=== PATIENT | female | born 1965 | race Caucasian/White ===

== ENCOUNTER 2016-05-07 14:17 | Inpatient (IN) | payer BC, OTHER ==
[~2016-05-07] VITALS: Ht 160 cm; Wt 47.6 kg
[2016-05-07] MEDS ORDERED: LISI10TA5 PO (15:43)
[2016-05-07] MEDS ORDERED: LORAZEPAM 2 MG/1 ML VIAL IM PRN (16:15)
[2016-05-07] MEDS ORDERED: LOPERAMIDE HCL 2 MG CAPSULE PO PRN ×2 (16:15)
[2016-05-07] MEDS ORDERED: IBUPROFEN 400 MG TABLET PO PRN (16:15)
[2016-05-07] MEDS ORDERED: MAGNESIUM HYDROXIDE 30 ML LIQUID UDC PO PRN (16:15)
[2016-05-07] MEDS ORDERED: MIRALAX 17 GM POWD.PACK PO PRN (16:15)
[2016-05-07] MEDS ORDERED: LORAZEPAM 1 MG TABLET PO PRN ×2 (16:15)
[2016-05-07] MEDS ORDERED: DICYCLOMINE HCL 20 MG TABLET PO PRN (16:15)
[2016-05-07] MEDS ORDERED: ONDANSETRON ODT 4 MG TAB.RAPDIS SL PRN (16:15)
[2016-05-07] MEDS ORDERED: ACETAMINOPHEN 325 MG TABLET PO PRN (16:15)
[2016-05-07] MEDS ORDERED: PROMETHAZINE HCL 25 MG/1 ML VIAL IM PRN (16:15)
[2016-05-07] MEDS ORDERED: THIAMINE HCL 200 MG/2 ML VIAL IM ONE (16:15)
[2016-05-07] MEDS ORDERED: HYDROXYZINE PAMOATE 25 MG CAPSULE PO PRN (16:15)
[2016-05-07] MEDS ORDERED: MAG HYDROX/AL HYDROX/SIMETH 30 ML LIQUID UDC PO PRN (16:15)
--- NOTE | 2016-05-07 16:30 | NUR ---
ADMISSION NOTE: 51 yo female admitted with ETOH dependence. Pt is 5 feet 3 inches tall. Weight is 105 pounds. Pt is extremely intoxicated at this time with ETOH odor on breath. Pt slurring words. Unable to do full assessment. Vital signs: B/P 126/88 P: 103 RR: 18 T: 98.3 Pulse OX: 94% Initial CIWA 5. Pt placed on 1:1 status due to level of intoxication. Pt has NKA Follows a Vegan diet. Pt denies HI/SI. Pt is oriented X2. Color pink, skin warm and dry. Respirations even and unlabored. Skin intact. Pt states she does not have a PCP. Pt is unable to recall any other detox admissions. Substance use: ETOH patient states she drinks 1-2 bottles of wine per day X 6 months. Last drink today. Unsure of amount Valium pt states she has anxiety and takes 10mg "once in a while." Last use 05-05-16 Addendum: 05/07/16 at 1808 by LAKHWINDER GRANDE RN Pt denies seizure history
--- NOTE | 2016-05-07 16:45 | NUR ---
IV inserted 22G Peripheral IV line started on L forearm x1 attempt, rapid blood return noted. Pt tolerated well. IVF to be initiated.
[2016-05-07 16:58] VITALS: BP 126/88
--- NOTE | 2016-05-07 17:00 | NUR ---
Pt c/o dysuria. States she was seen at urgent care 3 weeks ago and put on antibiotics. Still with dysuria. Urine sent for UA and C+S
[2016-05-07] MEDS: IV NS 1000 ML 1,000 ML IV SCH (17:01)
[2016-05-07] MEDS ORDERED: CHLO25TA2 PO (17:16)
[2016-05-07] MEDS ORDERED: AMOX-430 PO (17:16)
[2016-05-07] MEDS ORDERED: OMEP40CA37 PO (17:16)
[2016-05-07 17:18] VITALS: BP 126/88
[2016-05-07 17:21] LABS: BASOPHILS # (AUTO) 0.1 K/uL (0.0-0.2); BASOPHILS % (AUTO) 1.4 % (0.0-2.0); EOSINOPHILS % (AUTO) 0.8 % (0.0-7.0); HEMATOCRIT 42.1 % (37.0-47.0); HEMOGLOBIN 14.4 g/dL (12.0-16.0); LYMPHOCYTES # (AUTO) 1.6 K/uL (0.8-4.8); LYMPHOCYTES % (AUTO) 36.7 % (20.5-51.5); MEAN CORPUSCULAR HGB CONC 34 g/dL (32.0-37.0); MEAN CORPUSCULAR VOLUME 93.8 fL (81.0-99.0); MONOCYTES # (AUTO) 0.3 K/uL (0.1-1.30); MONOCYTES % (AUTO) 6.1 % (0.0-11.0); NEUTROPHILS # (AUTO) 2.5 K/uL (1.8-8.9); PLATELET COUNT (AUTO) 221 K/uL (150-450); RED BLOOD CELL COUNT(AUTO) 4.49 MIL/uL (4.20-5.40); RED CELL DISTRIBUTION WIDTH 12.3 % (11.5-14.5); WHITE BLOOD COUNT (AUTO) 4.5 K/uL (4.0-11.2)
[2016-05-07 17:22] LABS: ALBUMIN 4.4 g/dL (3.4-5.0); BILIRUBIN,TOTAL 0.3 mg/dL (0.2-1.0); CREATININE 0.8 mg/dL (0.6-1.3); MAGNESIUM 2.2 mg/dL (1.8-2.4); POTASSIUM 4.4 mmol/L (3.5-5.1); TOTAL PROTEIN, SERUM 8.3 g/dL (6.4-8.2)
[2016-05-07 17:33] LABS: THYROID STIMULATING HORMONE 0.827 mIU/mL (0.358-3.740)
[2016-05-07 17:42] LABS: *BILIRUBIN,URIN NEGATIVE (NEGATIVE); *BLOOD, URINE Trace-lysed (NEGATIVE); *CLARITY,URINE CLEAR (CLEAR); *COLOR,URINE Orange (YELLOW); *KETONES,URINE NEGATIVE (NEGATIVE); *PROTEIN,URINE TRACE (NEGATIVE); *URINE HCG, QUAL NEGATIVE (NEGATIVE); LEUKOCYTE ESTERASE ,URINE NEGATIVE (NEGATIVE)
[2016-05-07 17:46] LABS: HIV-1 p24 ANTIGEN NON REACTIVE (NONREACTIVE); HIV-1/2 ANTIBODY NON REACTIVE (NONREACTIVE)
[2016-05-07 17:51] LABS: *AMPHETAMINE, URINE NEGATIVE (NEGATIVE); *BARBITURATE, URINE NEGATIVE (NEGATIVE); *CANNABINOID, URINE NEGATIVE (NEGATIVE); *COCCAINE, URINE NEGATIVE (NEGATIVE); *OPIATE, URINE NEGATIVE (NEGATIVE); *PHENCYCLIDINE SCREEN,URINE NEGATIVE (NEGATIVE)
[2016-05-07 17:52] LABS: NITRITE, URINE NEGATIVE (NEGATIVE); UGLUCOSE NEGATIVE (NEGATIVE)
[2016-05-07 17:53] LABS: SQUAMOUS EPITHELIAL CELL,UR MODERATE /HPF (NONE SEEN); WBC,URINE 0-3 /HPF (0-3)
--- NOTE | 2016-05-07 18:25 | NUR ---
Pt NPO due to elevated lipase.
--- NOTE | 2016-05-07 18:45 | NUR ---
END OF SHIFT NOTE: Report given to shift production supervisor nurse. 51 yo female admitted today with ETOH dependence. Pt states she drinks 1-2 bottles of wine per day. Pt extremely intoxicated. Placed on 1:1 due to level of intoxication. Pt is awake and alert, but slurring words. Unable to get full history from patient. Pt c/o dysuria. UA and culture sent to lab. Color pink, skin warm and dry. Pt has IV NS @ 125cc/hr LFA. Running via pump. Safety precautions observed. Call light within reach.
--- NOTE | 2016-05-07 19:15 | NUR ---
START OF SHIFT Received 51 year old female patient admitted on 05/07/16 for ETOH and Valium dependency. Pt is full code with NKA. He reports PMHx of anxiety. He reports drinking ETOH (wine) 1-2 bottles daily for 6 months. Last dose was on 05/07/16. And Valium 10 mg intermittently for 2 years. Last dose was 10 mg on 05/05/16. Pt will be placed on 5 day Ativan taper to start on 05/08/16. Pt is on 1:1 for safety and has IV 22 gauge on left forearm with NS @ 125 mL/hr. IV is patent and flushing well, no s/s of infection noted. Per endorsement, pt is NPO d/t lipase of 419. Pt currently in room sleeping, with sitter at bedside. Breathing is even and unlabored, respirations 16. Pt safe with bed locked in lowest position, side rails up x2 and call light within reach. Will continue to monitor.
[2016-05-07 20:00] VITALS: BP 111/86
[2016-05-07] MEDS: CLONIDINE HCL 0.1 MG TABLET PO PRN (20:15)
--- NOTE | 2016-05-07 20:15 | NUR ---
PRN ZOFRAN/CLONIDINE Pt complains of nausea with no episode of vomiting. And withdrawal symptoms such as anxiety and diaphoresis. PRN Zofran and Clonidine administered as ordered. CIWA:7. Will continue to monitor effectiveness of medications.
[2016-05-07] MEDS: PHENAZOPYRIDINE HCL 100 MG TABLET PO SCH (20:38)
--- NOTE | 2016-05-07 21:15 | NUR ---
PRN ZOFRAN/CLONIDINE REASSESSMENT PRN Zofran effective. Pt reports decreased nausea at this time. Clonidine somewhat effective. Pt still reports feeling anxious. Breathing even and unlabored, safety measures in place. Will continue to monitor.
--- NOTE | 2016-05-07 23:12 | NUR ---
PRN ATIVAN Pt complains of increased anxiety and sweats. Noted to be agitated at this time. PRN Ativan 1 mg administered as ordered. CIWA:9. Breathing even and unlabored, safety measures in place. Will continue to monitor effectiveness.
[2016-05-08] MEDS ORDERED: TRAZODONE 50 MG TABLET PO ONE
--- NOTE | 2016-05-08 | NUR ---
VITALS 0000 vitals refused. Pt lying in bed, resting with eyes closed. Respirations 16, breathing is even and unlabored, safety measures in place. Will continue to monitor. Addendum: 05/08/16 at 0133 by DUSTIN MCWILLIAMS RN Amended: Links added.
[2016-05-08] MEDS: diphenhydrAMINE 50 MG CAPSULE PO PRN (00:01)
--- NOTE | 2016-05-08 00:05 | NUR ---
PRN BENADRYL/ONE TIME TRAZODONE Pt complains of inability to stay asleep d/t itchiness in hands. Pt states " I keep waking up, my hands are itchy." PRN Benadryl administered, and pt received one time order of Trazodone. Breathing even and unlabored, safety measures in place. Will continue to monitor effectiveness.
--- NOTE | 2016-05-08 00:12 | NUR ---
PRN ATIVAN REASSESSMENT PRN Ativan effective. Pt reports feeling less anxious. CIWA: 6. Breathing even and unlabored, safety measures in place. Will continue to monitor.
[2016-05-08] MEDS: IV NS 1000 ML 1,000 ML IV SCH ×2 (00:29→09:17)
--- NOTE | 2016-05-08 01:05 | NUR ---
PRN BENADRYL/TRAZODONE REASSESSMENT PRN medications effective. Pt lying in bed with eyes closed noted to be asleep. Breathing is even and unlabored, safety measures in place. Will continue to monitor.
--- NOTE | 2016-05-08 04:00 | NUR ---
VITALS 0400 vitals refused. Pt lying in bed, resting with eyes closed. Respirations 16, breathing is even and unlabored, safety measures in place. Will continue to monitor.
--- NOTE | 2016-05-08 07:21 | NUR ---
END OF SHIFT Pt is a 51 year old female patient admitted on 05/07/16 for ETOH and Valium dependency. Pt is full code with NKA. She reports PMHx of anxiety. Pt will be placed on 5 day Ativan taper to start on 05/08/16. Pt is on 1:1 for safety and has IV 22 gauge on left forearm with NS @ 120 mL/hr. IV is patent and flushing well, no s/s of infection noted. Pt is NPO d/t lipase of 419. She received PRN clonidine, Zofran, trazodone, benadryl and Ativan. She received a new order for Pyridium d/t dysuria. She slept a total of 6 hrs, Intake: 0 Void: x3 BM:0. CIWA:9. Breathing is even and unlabored, respirations 16. Pt safe with bed locked in lowest position, side rails up x2 and call light within reach. Will endorse to oncoming shift.
--- NOTE | 2016-05-08 07:22 | NUR ---
Start of shift Pt is a 51 year old female admitted on 05/07/16 for ETOH and Valium dependency. Pt is full code vegan diet on fall and seizure precautions denies any food or drug allergies. She reports PMHx of anxiety. Pt is on a 5 day Ativan taper to start on tolerating well. Pt is on 1:1 for safety and has 22 gauge IV on left forearm with NS @ 120 mL/hr. IV is patent and flushing well, no s/s of infection noted. Pt is NPO d/t lipase of 419. Pt received PRN clonidine, Zofran, trazodone, Benadryl and Ativan during the night coordinator. Medications effective per night coordinator nurse. She received a new order for Pyridium d/t dysuria. Her last CIWA was a 9 taken at 1999. She slept a total of 6 hour last night. All safety measures in place with bed locked in lowest position, side rails up x2 and call light within reach. Will continue to monitor and provide support.
[2016-05-08 08:00] VITALS: BP 99/61
[2016-05-08] MEDS: LISINOPRIL 10 MG TABLET PO SCH (09:00)
[2016-05-08] MEDS ORDERED: TUBERCULIN,PURIF.PROT.DERIV. 5 TU/0.1 ML TEST ID ONE (09:00)
[2016-05-08] MEDS ORDERED: PANTOPRAZOLE SODIUM 40 MG VIAL IV SCH (09:00)
[2016-05-08] MEDS: PHENAZOPYRIDINE HCL 100 MG TABLET PO SCH ×3 (09:16→21:42)
[2016-05-08] MEDS: FOLIC ACID 1 MG TABLET PO SCH (09:18)
[2016-05-08] MEDS: THIAMINE HCL 100 MG TABLET PO SCH (09:18)
[2016-05-08] MEDS: LORAZEPAM 1 MG TABLET PO SCH ×4 (09:18→21:42)
[2016-05-08] MEDS: MULTIVITAMINS,THERAPEUTIC TABLET PO SCH (09:18)
[2016-05-08 12:00] VITALS: BP 113/73
[2016-05-08 16:00] VITALS: BP 123/83
--- NOTE | 2016-05-08 19:15 | NUR ---
START OF SHIFT Received 51 year old female patient admitted on 05/07/16 for ETOH and Valium dependency. Pt is full code with NKA. He reports PMHx of anxiety. He reports drinking ETOH (wine) 1-2 bottles daily for 6 months. Last dose was on 05/07/16. And Valium 10 mg intermittently for 2 years. Last dose was 10 mg on 05/05/16. Pt placed on 5 day Ativan taper started today (05/08/16). Per endorsement, pt NPO, 1:1 and IV Dc'd. She did not receive or request PRN medications during shift. Pt is alert and oriented x4. Breathing is even and unlabored, respirations 16. Pt safe with bed locked in lowest position, side rails up x2 and call light within reach. Will continue to monitor.
--- NOTE | 2016-05-08 19:19 | NUR ---
End of shift Pt is a 51 year old female admitted on 05/07/16 for ETOH and Valium dependency. Pt is full code vegan diet on fall and seizure precautions denies any food or drug allergies. She reports PMHx of anxiety. Pt is on a 5 day Ativan taper currently on day 1 tolerating well. Pt is no longer on a 1:1 and her IV had been discontinued. Pt is no longer NPO per MD orders. Pt did not received nor request any PRN medications. She continues on Pyridium d/t dysuria. Her last CIWA was a 4 taken at 1600. Pt did not participate in groups or activities due to it being her first day on the unit. Pt stated that the medications are working well at controlling the withdrawal symptoms, evidenced by low assessment scores during the day ranging from 6-4. Pt ate all of her meals. Pt remains compliant with the treatment plan. Pts vital signs within normal limits, A/Ox4, denies chest pain. Respirations even unlabored, lungs clear upon auscultation abdomen soft and non- distended. Pt denies nausea, vomiting and diarrhea. Pt total fluid intake was 1500ml with 3 voids and no stool. Safety measures in place, call light within reach. All pertinent information discussed with steward/stewardess night, endorsement given to steward/stewardess night nurse.
[2016-05-08 20:00] VITALS: BP 130/86
--- NOTE | 2016-05-08 21:43 | NUR ---
PRN VISTARIL Pt complains of anxiety. PRN Vistaril administered as ordered. Breathing is even and unlabored, safety measures in place. Will continue to monitor effectiveness.
--- NOTE | 2016-05-08 22:43 | NUR ---
PRN VISTARIL REASSESSMENT PRN medication ineffective. Pt still complains of anxiety. Encouraged relaxation techniques. Pt verbalized understanding. Breathing even and unlabored, safety measures in place. Will continue to monitor.
[2016-05-08] MEDS: CLONIDINE HCL 0.1 MG TABLET PO PRN (23:41)
--- NOTE | 2016-05-08 23:41 | NUR ---
PRN CLONIDINE Pt complains of anxiety/agitation and chills. PRN Clonidine administered as ordered. Breathing even and unlabored, safety measures in place. Will continue to monitor effectiveness.
[2016-05-09] VITALS: BP 121/93
--- NOTE | 2016-05-09 00:41 | NUR ---
PRN CLONIDINE REASSESSMENT PRN medication effective. Pt noted to be lying in bed with eyes closed, asleep. Breathing even and unlabored, respirations 16. Safety measures in place. Will continue to monitor.
--- NOTE | 2016-05-09 04:00 | NUR ---
VITALS 0400 vitals refused by pt at beginning of shift. Pt lying in bed with eyes closed noted to be asleep. Breathing is even and unlabored, safety measures in place. Will continue to monitor. Addendum: 05/09/16 at 0506 by DUSTIN MCWILLIAMS RN Amended: Links added.
--- NOTE | 2016-05-09 07:11 | NUR ---
END OF SHIFT Pt is a 51 year old female patient admitted on 05/07/16 for ETOH and Valium dependency. Pt is full code with NKA. She reports PMHx of anxiety. She is placed on 5 day Ativan taper started 05/08/16 and tolerating well. She received PRN medications of Vistaril and Clonidine. PRN Vistaril was ineffective in decreasing anxiety. She slept a total of 2 hrs, Intake:1000mL Void:x2 BM:0 CIWA:3. She remains alert and oriented x4. Breathing is even and unlabored, respirations 16. Pt safe with bed locked in lowest position, side rails up x2 and call light within reach. Endorsed to oncoming nurse.
--- NOTE | 2016-05-09 07:29 | NUR ---
Start of shift ; Patient is AOX4. Pt is a 51 year old female admitted on 05/07/16 for ETOH and Valium dependency. Pt is full code vegan diet on fall and seizure precautions denies any food or drug allergies. She reported past medical history of anxiety. Pt was placed on a 5 day Ativan taper, no adverse reactions. Pt received PRN Vistaril and Clonidine, noted to be effective. Patient was placed on Pyridium d/t dysuria. She slept a total of 2 hour last night. All safety measures in place with bed locked in lowest position, side rails up x2 and call light within reach. Will continue to monitor patient.
[2016-05-09 07:46] LABS: ALBUMIN 3.5 g/dL (3.4-5.0); BILIRUBIN,DIRECT 0.1 mg/dL (0.0-0.2); BILIRUBIN,TOTAL 0.5 mg/dL (0.2-1.0); CALCIUM 9.2 mg/dL (8.5-10.1); CREATININE 0.8 mg/dL (0.6-1.3); POTASSIUM 4.2 mmol/L (3.5-5.1); TOTAL PROTEIN, SERUM 6.7 g/dL (6.4-8.2)
[2016-05-09 08:00] VITALS: BP 117/84
[2016-05-09] MEDS: FOLIC ACID 1 MG TABLET PO SCH (08:41)
[2016-05-09] MEDS: LISINOPRIL 10 MG TABLET PO SCH (08:41)
[2016-05-09] MEDS: THIAMINE HCL 100 MG TABLET PO SCH (08:41)
[2016-05-09] MEDS: MULTIVITAMINS,THERAPEUTIC TABLET PO SCH (08:41)
[2016-05-09] MEDS: PHENAZOPYRIDINE HCL 100 MG TABLET PO SCH ×3 (08:42→20:53)
[2016-05-09] MEDS ORDERED: LORAZEPAM 1 MG TABLET PO SCH (09:00)
[2016-05-09 12:00] VITALS: BP 128/90
[2016-05-09 13:25] LABS: HCV AB <0.1 s/co ratio (0.0-0.9); HEPATITIS B CORE AB, IgM Negative (Negative); HEPATITIS B SURFACE AG Negative (Negative)
[2016-05-09] MEDS: LORAZEPAM 1 MG TABLET PO SCH ×2 (14:13→20:53)
[2016-05-09 16:00] VITALS: BP 128/90
--- NOTE | 2016-05-09 18:04 | NUR ---
End of shift note; Patient is AOX4. Pt is a 51 year old female admitted on 05/07/16 for ETOH and Valium dependency. Pt is full code vegan diet on fall and seizure precautions denies any food or drug allergies. She reported past medical history of anxiety. Pt was placed on a modified Ativan taper, no adverse reactions. Patient was placed on Pyridium d/t dysuria. Patient remained compliant with treatment plan. Medications were effective in reducing withdrawal symptoms. All safety measures in place with bed locked in lowest position, side rails up x2 and call light within reach. Met all needs.
--- NOTE | 2016-05-09 19:45 | NUR ---
START OF SHIFT NOTE Received pt from day shift nurse. Pt is 51 y o female, admitted on05/07/16 for ETOH (1-2 bottles of wine daily for 6 month) and valium (10 mg occasionally for 2 yrs) dependence. Pt is on Ativan taper started on 05/08/16, per pt request taper got modified today to be finished on 05/11/16. Pt in bed, aaox4. Pt reports mild anxiety, educated on relaxation techniques. Skin warm, intact, dry. No tremors noted, pt denies tingling/ numbing. Pt verbalized that she needs to return back to work and that she might leave treatment earlier; pt did not verbalized threats of leaving AMA at this time. RR unlabored, lung sounds clear bilat. Heart rate regular. Pt denies n/v/d; last BM 05/09/16. Pt reports dysuria, pt received BID Pyridum 100 mg. Pt encouraged to increase PO fluids. PMH of anxiety. Pt full code, Vegan diet, NKA. Pt is on fall precautions. Side rails up x 2, bed locked in lowest position, nena light within reach. Will continue with plan of care.
[2016-05-09 20:00] VITALS: BP 118/83
--- NOTE | 2016-05-10 | NUR ---
VS, CIWA Pt refused VS and CIWA assessment, state he wants to sleep and not to be bothered. Pt asleep, RR even and unlabored at 15 breaths per minute. Side rails up x 2, call light within reach, bed locked in lowest position. Will continue to monitor Addendum: 05/10/16 at 0432 by MAXIMILIANO SALINAS RN Amended: Links added.
--- NOTE | 2016-05-10 04:00 | NUR ---
VS, CIWA Pt refused VS and CIWA assessment, state he wants to sleep and not to be bothered. Pt asleep, RR even and unlabored at 16 breaths per minute. Side rails up x 2, call light within reach, bed locked in lowest position. Will continue to monitor Addendum: 05/10/16 at 0432 by MAXIMILIANO SALINAS RN Amended: Links added.
--- NOTE | 2016-05-10 07:20 | NUR ---
Start of shift note SBAR report rcv'd. Pt was admitted for ETOH dependence and benzo use. Pt has a PMH of anxiety. Pt is on a custom ativan taper. Pt has NKA, full code and on a regular vegan diet. Pt is currently resting in her bed. Pt has no complaints at this time. Pt states that she is comfortable. Bed is locked in a low position, call light within reach. Side rails up x 2. Will continue to monitor pt.
--- NOTE | 2016-05-10 07:22 | NUR ---
END OF SHIFT NOTE Pt is 51 y o female, admitted on05/07/16 for ETOH (1-2 bottles of wine daily for 6 month) and valium (10 mg occasionally for 2 yrs) dependence. Pt is on Ativan taper started on 05/08/16, per pt request taper got modified today to be finished on 05/11/16. Withdrawal s/s included mild anxiety, difficulty concentrating. Last CIW =3 at 1999; pt receive scheduled medications, no prns were given. VS WNL. Pt verbalized she plans to leave today, but no threats to leave AMA. Pt full code, Vegan diet, NKA. Pt is on fall precautions. Side rails up x 2, bed locked in lowest position, nena light within reach. Report endorsed to day shift nurse.
[2016-05-10 08:00] VITALS: BP 134/93
[2016-05-10] MEDS: LORAZEPAM 1 MG TABLET PO SCH ×3 (09:00→21:00)
[2016-05-10] MEDS ORDERED: LORAZEPAM 1 MG TABLET PO SCH (09:00)
--- NOTE | 2016-05-10 09:00 | NUR ---
Pt refused medication Pt refused ativan. CIWA of 1. Dr Blanc is aware. Will continue to monitor pt.
[2016-05-10] MEDS: LISINOPRIL 10 MG TABLET PO SCH (09:11)
[2016-05-10] MEDS: PHENAZOPYRIDINE HCL 100 MG TABLET PO SCH (09:11)
[2016-05-10] MEDS: MULTIVITAMINS,THERAPEUTIC TABLET PO SCH (09:11)
[2016-05-10] MEDS: THIAMINE HCL 100 MG TABLET PO SCH (09:11)
[2016-05-10] MEDS: FOLIC ACID 1 MG TABLET PO SCH (09:11)
[2016-05-10 12:00] VITALS: BP 133/95
[2016-05-10] MEDS ORDERED: HYDROXYZINE PAMOATE 25 MG CAPSULE PO PRN (14:30)
[2016-05-10 16:00] VITALS: BP 149/91
--- NOTE | 2016-05-10 19:08 | NUR ---
End of shift note Pt was admitted for ETOH dependence and benzo use. Pt has a PMH of anxiety. Pt is on a custom ativan taper. Pt has NKA, full code and on a regular vegan diet. Pt threatened to leave AMA several times during the shift, staff was able to talk to pt and convince her to stay. Pt is comfortable at this time. Pt has no complaints. All needs addressed. No PRN's given to pt. SBAR report endorsed to shift supervisor rn nurse.
[2016-05-10 20:00] VITALS: BP 127/84
--- NOTE | 2016-05-10 20:00 | NUR ---
START OF SHIFT NOTE Received pt from day shift nurse. Pt is 51 y o female, admitted on05/07/16 for ETOH (1-2 bottles of wine daily for 6 month) and valium (10 mg occasionally for 2 yrs) dependence. Pt is on 4 day Ativan taper started on 05/08/16. PMH of anxiety. Pt full code, Vegan diet, NKA. Pt in bed, aaox4. Pt reports minimal anxiety throughout the day, reinforced on nonpharmacological relaxation techniques (deep breathing, imagery); pt verbalized understanding. Skin warm, intact, dry. No tremors noted, pt denies tingling/ numbing. Noted per day shift reports that pt wanted to leave AMA today, but she decided to stay. Pt currently state "I feel good now, I will leave tomorrow". MD Blanc made aware, pt encouraged to adhere to treatment plan. Breathing unlabored, lung sounds clear bilat. Heart ryan regular. Pt denies n/v/d; bowel sounds active x 4. Pt denies urinary difficulties. Pt is on fall precautions. Side rails up x 2, bed locked in lowest position, nena light within reach. Will continue with plan of care.
--- NOTE | 2016-05-10 21:55 | NUR ---
PT REFUSED MEDICATION Pt refused Ativan scheduled at 2100. Pt provided information on risks and benefits, offered medication x 3, but still refused. Pt states "I don't think i need drugs, i feel fine". CIWA score 1. Fall precautions in place
[2016-05-11] VITALS: BP 118/87
[2016-05-11] MEDS: diphenhydrAMINE 50 MG CAPSULE PO PRN (01:05)
--- NOTE | 2016-05-11 01:05 | NUR ---
PRN BENADRYL AND MYLANTA Pt awake, c/o insomnia and heartburn. Administered Benadryl 50 mg PO prn and Mylanta 30 ml PO prn as ordered. Fall precautions in place, will continue to monitor
--- NOTE | 2016-05-11 02:00 | NUR ---
REASSESSMENT Pt resting quietly in bed; RR even and unlabored. Side rails up x 2, call light within reach, bed locked in lowest position.
--- NOTE | 2016-05-11 04:00 | NUR ---
VS, CIWA Pt refused VS and CIWA assessment, state she wants to sleep and not to be bothered. Pt asleep, RR even and unlabored at 16 breaths per minute. Side rails up x 2, call light within reach, bed locked in lowest position. Will continue to monitor Addendum: 05/11/16 at 6253 by MAXIMILIANO SALINAS RN Amended: Links added.
--- NOTE | 2016-05-11 07:21 | NUR ---
END OF SHIFT NOTE Pt is 51 y o female, admitted on05/07/16 for ETOH (1-2 bottles of wine daily for 6 month) and valium (10 mg occasionally for 2 yrs) dependence. Pt is on day 4 of 4 Ativan taper started on 05/08/16. Pt verbalized decision to leave AMA today, she was encouraged to comply with treatment plan, but she refused to take scheduled Ativan at 2100 and was insisting on her decision to leave 05/11/16. MD made aware. Pt was presented with mild anxiety, insomnia, heartburn. VSS. Last CIWA 1 at 0000; pt received prn Benadryl and Maalox at 0105 for insomnia and heartburn, both were effective. Pt slept for 5 hrs, PO intake 500 ml, urine x2. Pt full code, Vegan diet, NKA. Pt is on fall precautions. Side rails up x 2, bed locked in lowest position, nena light within reach. Report endorsed to day shift nurse.
--- NOTE | 2016-05-11 07:40 | NUR ---
START OF SHIFT Pt i s a 51 yr old female, AA&Ox3. pt was admitted on 05/07/16 for ETOH/Benzo Dependence and is on 5 day Ativan taper as ordered. Received endorsement that pt refused Ativan as scheduled during the night. Last CIWA was 1. Pt is full code, Vegan diet and NKA. Pt reports of PMH of anxiety. Pt is currently in bed resting wtih respirations even and unlabored. no acute distress noted. Skin is intact, warm and dry to touch. Pt denies any n/v. Encouraged increase fluid intake. Safety precautions observed. Call light is within reach. Will continue to monitor.
[2016-05-11 08:00] VITALS: BP 134/81
[2016-05-11] MEDS ORDERED: LORAZEPAM 1 MG TABLET PO SCH ×2 (09:00)
[2016-05-11 09:02] VITALS: BP 134/81
[2016-05-11] MEDS: LISINOPRIL 10 MG TABLET PO SCH (09:02)
[2016-05-11] MEDS: MULTIVITAMINS,THERAPEUTIC TABLET PO SCH (09:02)
[2016-05-11] MEDS: FOLIC ACID 1 MG TABLET PO SCH (09:02)
[2016-05-11] MEDS: THIAMINE HCL 100 MG TABLET PO SCH (09:02)
--- NOTE | 2016-05-11 09:02 | NUR ---
MEDICATION REFUSED/ PRN GIVEN Pt refused to take Ativan 1mg. Per pt, states "I'm not withdrawing". Pt was educated on medication regime. Pt was able to verbalize understanding but continued to refuse. Pt c/o abdominal cramping. Bentyl 20mg PO PRN was given. medication adri well. Encouraged increase fluid intake. Will continue to monitor.
--- NOTE | 2016-05-11 10:02 | NUR ---
PRN RE-ASSESSMENT Bentyl PRN was effective. Pt denies any abdominal cramping. Encouraged increase fluid intake. Will continue to monitor.
--- NOTE | 2016-05-11 12:00 | NUR ---
Pt refused to have VS checked. Pt stated of leaving AMA. RR is 16. No acute distress noted. Addendum: 05/11/16 at 1228 by KOSTAS BURTON LVN Amended: Links added.
--- NOTE | 2016-05-11 12:30 | NUR ---
AMA Pt stated that she wanted to leave AMA. Pt stated, "I'm not withdrawing". Pt was educated about the risks and consequences of leaving AMA, pt was able to verbalize understanding but still requested to leave. Multiple staff spoke with Pt without success. VS are WNL. Pt denies any SI/HI. Skin intact, Dr. Blanc notified. Pt was given a list of community resources in case she is in need of help. All belongings returned to pt. Pt left the unit on 05/11/16 at 1228
[2016-05-12] MEDS ORDERED: LORAZEPAM 1 MG TABLET PO SCH (09:00)
== END 2016-05-11 12:28 | disposition left against medical advice (07) | DRG 894 ==
LOC: SRC 15:42
PROVIDERS: ADMIT Internal Medicine; ATTEND Internal Medicine
PROC: HZ2ZZZZ Detoxification Services for Substance Abuse Treatment (ICD-10-PCS; principal; 2016-05-07)
PROC: HZ31ZZZ Individual Counseling for Substance Abuse Treatment, Behavioral (ICD-10-PCS; 2016-05-08)
PROC: HZ41ZZZ Group Counseling for Substance Abuse Treatment, Behavioral (ICD-10-PCS; 2016-05-10)
DX: F10.220 Alcohol dependence with intoxication, uncomplicated (principal); K85.20 Alcohol induced acute pancreatitis without necrosis or infection; F10.230 Alcohol dependence with withdrawal, uncomplicated; K70.10 Alcoholic hepatitis without ascites; F13.229 Sedative, hypnotic or anxiolytic dependence with intoxication, unspecified; Y90.9 Presence of alcohol in blood, level not specified; F41.9 Anxiety disorder, unspecified; I10 Essential (primary) hypertension; Z91.19 Patient's noncompliance with other medical treatment and regimen; R30.0 Dysuria
CPT/HCPCS: 36415; 70030-TC; 80307; 80346; 83690; 83735; 84443; 84703; 85025; 86580; 86592; 86705; 86803; 87086; 87340; 87806; C9113; G6040-TC; J3411; J7030; Q0162; Q0163

== ENCOUNTER 2017-10-27 13:39 | Inpatient (IN) | payer OTHER ==
[~2017-10-27] VITALS: Ht 162.6 cm; Wt 47.6 kg
[~2017-10-27 13:39] MED LIST: CHLO25TA2 PO; LISI10TA5 PO; OMEP40CA37 PO
--- NOTE | 2017-10-27 14:20 | NUR ---
LE: Pre-Admission Assessment Dental Office Assistant encounters pt in intake office on first floor. Pt is A/O x3 and able to make her needs known. Pt is intoxicated and is slow to process and respond. Pt is anxious and cooperative. Pt with a blunted affect and depressed mood. Endorses drinking 0.5-1 bottle(750 ml) of red wine, daily. Pt is cooperative with VS and pre-assessment. VS stable. Will endorse to VANESSA Becerra for admission.
[2017-10-27 14:30] VITALS: BP 137/84
--- NOTE | 2017-10-27 14:48 | NUR ---
ADMISSION NOTE STATUS-FULL CODE HEIGHT-5'4 WEIGHT-105IBS PCP-DR. Lao VITAL SIGNS-B/P-137/84,HR-84,RR-18,SPO2-96%,TEMP-98.7 52 Year old female admitted to [facility] at 1448 for medically supervised withdrawal form ETOH( Red Wine). Body check was completed, skin is intact warm and dry to touch, no contraband was found. Patient able to provide UA for UDS and blood drawn was done. Patient is noted intoxicated with slurred speech and facial sadness; pt is observed crying, anxious and agitated stating she does not want to be here in treatment. Pt is noted with delayed verbal response, poor memory recall and is easily distracted. Patient is able to walk with steady gait. Patient stated she never smoked cigarettes. Vital signs WNL. Patient reported of PMH of HTN, GERD and Anxiety. Pt states of taking Omeprazole and Lisinopril as ordered. Home medication was reconciled. Pt also states of taking Xanax 0.5mg BID as prescribed. Patient denies any history of seizure, blackout or withdrawal induced delirium. Pt's urine drug screen was positive for Cocaine, during assessment, pt denied any other substance bedsides. Pt states, "I don't do drugs" and became agitated. SUBSTANCE USE HISTORY Patient stated she was first drinking intermittently at the age of 23. ETOH(RED WINE)- Patient stated she was drinking on a daily basis for 1 years 1/2 bottle to 1 bottle of red wine daily .Last drink was 2 glasses of red wine (6oz) on 10/27/17 at 1330PM TREATMENT HISTORY Patient reported she was at [facility] in april and left AMA on 05/13/16. Patient reported 36 months of sobriety in August 2016. Pt is a poor historian in treatment history. WITHDRAWAL SIGNS Patient stated her signs and symptoms of withdrawal are anxiety, agitation, tremors, panic attacks. Patient denies any history of SI/HI. MOTIVATION Patient denies any motivation for treatment states "I don't feel like being here". Patient verbalized leaving AMA. Multiple staff members talked to the patient. Patient was oriented to unit, room and call lights, oriented to unit routines and activity groups, and provided with hygiene supplies. Patient has been educated about plan of care and case management, as well as unit protocols. Safety measures in place, side rails up x2 bed locked in low position, call light within reach. Will cont to monitor.
[2017-10-27 15:15] LABS: *URINE HCG, QUAL NEGATIVE (NEGATIVE)
[2017-10-27] MEDS ORDERED: MULTIVITAMINS,THERAPEUTIC TABLET PO SCH (15:15)
[2017-10-27] MEDS ORDERED: LOPERAMIDE HCL 2 MG CAPSULE PO PRN ×2 (15:15)
[2017-10-27] MEDS ORDERED: IBUPROFEN 400 MG TABLET PO PRN (15:15)
[2017-10-27] MEDS ORDERED: diphenhydrAMINE 50 MG CAPSULE PO PRN (15:15)
[2017-10-27] MEDS ORDERED: FOLIC ACID 1 MG TABLET PO SCH (15:15)
[2017-10-27] MEDS ORDERED: HYDROXYZINE PAMOATE 25 MG CAPSULE PO PRN (15:15)
[2017-10-27] MEDS ORDERED: DIAZEPAM 5 MG TABLET PO PRN (15:15)
[2017-10-27] MEDS ORDERED: THIAMINE HCL 100 MG TABLET PO SCH (15:15)
[2017-10-27] MEDS ORDERED: THIAMINE HCL 200 MG/2 ML VIAL IM ONE (15:15)
[2017-10-27] MEDS ORDERED: MIRALAX 17 GM POWD.PACK PO PRN (15:15)
[2017-10-27] MEDS ORDERED: MAGNESIUM HYDROXIDE 30 ML LIQUID UDC PO PRN (15:15)
[2017-10-27] MEDS ORDERED: ONDANSETRON ODT 4 MG TAB.RAPDIS SL PRN (15:15)
[2017-10-27] MEDS ORDERED: MAG HYDROX/AL HYDROX/SIMETH 30 ML LIQUID UDC PO PRN (15:15)
[2017-10-27] MEDS ORDERED: CLONIDINE HCL 0.1 MG TABLET PO PRN (15:15)
[2017-10-27] MEDS ORDERED: DIAZEPAM 10 MG TABLET PO PRN ×2 (15:15)
[2017-10-27 15:25] LABS: *AMPHETAMINE, URINE NEGATIVE (NEGATIVE); *BARBITURATE, URINE NEGATIVE (NEGATIVE); *CANNABINOID, URINE NEGATIVE (NEGATIVE); *COCCAINE, URINE POSITIVE (NEGATIVE); *OPIATE, URINE NEGATIVE (NEGATIVE); *PHENCYCLIDINE SCREEN,URINE NEGATIVE (NEGATIVE)
[2017-10-27] MEDS ORDERED: DIAZEPAM 5 MG TABLET PO ONE (15:30)
[2017-10-27 16:00] VITALS: BP 140/88
--- NOTE | 2017-10-27 16:22 | NUR ---
One time Valium Pt reports "I feel like I'm going to have a panic attack". Dr. Marino on the unit. Orders received for Valium 5mg one time.
[2017-10-27] MEDS ORDERED: LISI10TA5 PO (16:34)
[2017-10-27 16:47] LABS: BASOPHILS % (AUTO) 0.8 % (0.0-2.0); EOSINOPHILS # (AUTO) 0.1 K/uL (0.0-0.7); EOSINOPHILS % (AUTO) 1.8 % (0.0-7.0); HEMATOCRIT 35.5 % (31.2-41.9); HEMOGLOBIN 12.1 g/dL (10.9-14.3); LYMPHOCYTES # (AUTO) 1.7 K/uL (20.0-40.0); LYMPHOCYTES % (AUTO) 46.2 % (20.5-51.5); MEAN CORPUSCULAR HEMOGLOBIN 34.3 uug (24.7-32.8); MEAN CORPUSCULAR HGB CONC 34 g/dL (32.3-35.6); MEAN CORPUSCULAR VOLUME 100.4 fL (75.5-95.3); MONOCYTES # (AUTO) 0.3 K/uL (2.0-10.0); NEUTROPHILS # (AUTO) 1.6 K/uL (1.8-8.9); NEUTROPHILS % (AUTO) 43.2 % (38.5-71.5); PLATELET COUNT (AUTO) 220 K/uL (179-408); RED BLOOD CELL COUNT(AUTO) 3.54 MIL/uL (3.63-4.92); WHITE BLOOD COUNT (AUTO) 3.8 K/uL (3.8-11.8)
[2017-10-27 17:02] LABS: BILIRUBIN,TOTAL 0.2 mg/dL (0.2-1.0); CREATININE 0.6 mg/dL (0.6-1.3); POTASSIUM 4.8 mmol/L (3.5-5.1); TOTAL PROTEIN, SERUM 7.7 g/dL (6.4-8.2)
[2017-10-27 17:13] LABS: THYROID STIMULATING HORMONE 0.259 mIU/mL (0.358-3.740)
--- NOTE | 2017-10-27 17:35 | NUR ---
AMA NOTE Patient is alert awake oriented discharged from [facility] in stable condition. Vital signs WNL. Skin intact warm and dry to touch. Patient denies any SI/HI. Patient signed AMA form. All discharge paper work completed signed and dated. All belongings returned to the patient including his home medication. Multiple staff members talked to the patient regarding importance of going to the treatment, patient verbally understand still refused to stay. MD notified. Patient discharged from [facility] to home in stable condition.
[2017-10-28] MEDS ORDERED: TUBERCULIN,PURIF.PROT.DERIV. 5 TU/0.1 ML TEST ID ONE (09:00)
[2017-10-28] MEDS ORDERED: THIAMINE HCL 100 MG TABLET PO SCH (09:00)
[2017-10-28] MEDS ORDERED: FOLIC ACID 1 MG TABLET PO SCH (09:00)
[2017-10-28] MEDS ORDERED: MULTIVITAMINS,THERAPEUTIC TABLET PO SCH (09:00)
[2017-10-28] MEDS ORDERED: 5 DAY TAPER VALIUM-SERENITY PROTOCOL PO PRN (09:00)
[2017-10-29 05:08] LABS: HEPATITIS B SURFACE AG Negative (Negative)
== END 2017-10-27 20:00 | disposition left against medical advice (07) | DRG 894 ==
LOC: SRC 13:39
PROVIDERS: ADMIT Family Medicine Addiction Medicine; ATTEND Family Medicine Addiction Medicine
DX: F10.239 Alcohol dependence with withdrawal, unspecified (principal)
CPT/HCPCS: 36415; 80307; 80346; 80353; 83690; 83735; 84443; 84703; 85025; 86592; 86705; 86803; 87340; 87806; G0480

== ENCOUNTER 2017-11-04 15:37 | Inpatient (IN) | payer OTHER ==
[~2017-11-04] VITALS: Ht 160 cm; Wt 45.4 kg
[2017-11-04] MEDS ORDERED: LOPE-156 PO (17:34)
[2017-11-04] MEDS ORDERED: MIRALAX 17 GM POWD.PACK PO PRN (18:00)
[2017-11-04] MEDS ORDERED: MAGNESIUM HYDROXIDE 30 ML LIQUID UDC PO PRN (18:00)
[2017-11-04] MEDS ORDERED: IBUPROFEN 600 MG TABLET PO PRN (18:00)
[2017-11-04] MEDS ORDERED: CLONIDINE HCL 0.1 MG TABLET PO PRN (18:00)
[2017-11-04] MEDS ORDERED: LORAZEPAM 2 MG/1 ML VIAL IM PRN (18:00)
[2017-11-04] MEDS ORDERED: MAG HYDROX/AL HYDROX/SIMETH 30 ML LIQUID UDC PO PRN (18:00)
[2017-11-04] MEDS ORDERED: LOPERAMIDE HCL 2 MG CAPSULE PO PRN ×2 (18:00)
[2017-11-04] MEDS ORDERED: HYDROXYZINE PAMOATE 25 MG CAPSULE PO PRN (18:00)
[2017-11-04] MEDS ORDERED: ONDANSETRON ODT 4 MG TAB.RAPDIS SL PRN (18:00)
[2017-11-04] MEDS ORDERED: LORAZEPAM 1 MG TABLET PO PRN ×2 (18:00)
[2017-11-04] MEDS ORDERED: diphenhydrAMINE 50 MG CAPSULE PO PRN (18:00)
--- NOTE | 2017-11-04 18:00 | NUR ---
AMA Note Pt left AMA, pt refused to comply with treatment pt was educated about the risks and consequences of leaving AMA, Pt verbalized understanding but was adamant about leaving. Multiple staff members including doctors, nurses,and pt advocates attempted to reason with pt without any success. VS WNL, skin intact, pt denies any suicidal or homicidal ideations. Pt's psychiatrist and MD were notified and aware. Pt was given a list of community resources, AMA forms explained and signed. All belongings returned to pt, Pt left facility AMA on 11/04/17 at 1753
--- NOTE | 2017-11-04 18:10 | NUR ---
Admission note Pt is a 52 y/o female admitted for medically supervised ETOH-red wine withdrawals. Pt exhibits glossy red eyes appears a little intoxicated during assessment pt avoided eye contact by wearing sunglasses. Pt is a poor dentition, her speech was a bit slurred due to the damaged and missing teeth. Pt has a flat affect, unhappy mood, and appears anxious and agitated, Pt states that she doesnt really want to be here but will stay because it's necessary for her to get better. Pt has been here at [facility] twice, last time being on 10/27/17 . Pt left AMA after being on the unit for 2 hours. Pt stated "third time's a charm" Pt is the primary source of information, has a slow verbal response and a low tone voice. Pt is a poor historian she has difficulty concentrating and remembering. She reports that her PMH consists of HTN for which she is taking Lisinopril , GERD for which she is taking Pantoprazole , and Anxiety. Pt denies having any episodes of seizures. Pt reports having a PCP but does not recall his name. Pt denies ever smoking any cigarettes. Pt states the following as her symptoms when she stops drinking "I get very shaky, my hands begin to shake, I become depressed and dont feel like doing anything, life just becomes boring for me, I get angry very quick and little things begin to annoy me, I get nauseated and at times have vomited, I also feel like I get sick with a flue and a stomach ache" Body check was completed skin is intact warm dry to touch no contraband was found. Initial vital signs: BP: 115/74 HR 97 RR: 18 O2Sat 97% Substance use history: ETOH (red wine)- Pt stated she first started drinking at age 22 but it was always occasional, she began to drink 1 bottle of red wine daily a year ago. Her last drink was on 11/03/17 she drank 2 full large glasses of red wine. Treatment history [facility] in 2016 pt stated she left AMA after a few days her AMA date was 05/13/[address] [facility] Recovery last month 10/27/17 pt also left AMA after a few hours of being on the unit. Pt states that her longest period of sobriety was about 36 days in August of 2016 pt stated "I tried to quit but even after I got over the nasty withdrawal symptoms in the beginning life became so boring and I was always angry and agitated so I started to drink again because I couldnt deal with it anymore" Pts initial CIWA was 11 she had some tremors some sweats, moderately anxious and somewhat more than normally agitated , all information shared with Primary MD plan of care started pt is placed on a 5 day Ativan taper, Educated pt with unit rules and oriented pt around the unit. Encouraged pt to increase fluids as tolerated to help with detox process. Pt verbalized understanding . Safety measures in place call light within reach will continue to monitor.
[2017-11-04 18:16] LABS: BASOPHILS # (AUTO) 0.1 K/uL (0.0-8.0); BASOPHILS % (AUTO) 2.4 % (0.0-2.0); EOSINOPHILS # (AUTO) 0.1 K/uL (0.0-0.7); EOSINOPHILS % (AUTO) 1.1 % (0.0-7.0); HEMATOCRIT 38.8 % (31.2-41.9); HEMOGLOBIN 13.2 g/dL (10.9-14.3); LYMPHOCYTES % (AUTO) 33.9 % (20.5-51.5); MEAN CORPUSCULAR HEMOGLOBIN 34.5 uug (24.7-32.8); MEAN CORPUSCULAR HGB CONC 34 g/dL (32.3-35.6); MEAN CORPUSCULAR VOLUME 101.7 fL (75.5-95.3); MONOCYTES # (AUTO) 0.3 K/uL (2.0-10.0); MONOCYTES % (AUTO) 4.7 % (0.0-11.0); NEUTROPHILS # (AUTO) 3.3 K/uL (1.8-8.9); NEUTROPHILS % (AUTO) 57.9 % (38.5-71.5); PLATELET COUNT (AUTO) 187 K/uL (179-408); RED BLOOD CELL COUNT(AUTO) 3.81 MIL/uL (3.63-4.92); WHITE BLOOD COUNT (AUTO) 5.8 K/uL (3.8-11.8)
[2017-11-04 18:21] LABS: *URINE HCG, QUAL NEGATIVE (NEGATIVE)
[2017-11-04 18:30] LABS: BILIRUBIN,TOTAL 0.2 mg/dL (0.2-1.0); CREATININE 0.7 mg/dL (0.6-1.3); MAGNESIUM 2.2 mg/dL (1.8-2.4); POTASSIUM 4.3 mmol/L (3.5-5.1); TOTAL PROTEIN, SERUM 8.3 g/dL (6.4-8.2)
[2017-11-04 18:37] LABS: THYROID STIMULATING HORMONE 0.118 mIU/mL (0.358-3.740)
[2017-11-04 18:42] LABS: *AMPHETAMINE, URINE NEGATIVE (NEGATIVE); *BARBITURATE, URINE NEGATIVE (NEGATIVE); *CANNABINOID, URINE NEGATIVE (NEGATIVE); *COCCAINE, URINE NEGATIVE (NEGATIVE); *OPIATE, URINE NEGATIVE (NEGATIVE); *PHENCYCLIDINE SCREEN,URINE NEGATIVE (NEGATIVE)
[2017-11-04] MEDS ORDERED: THIAMINE HCL 200 MG/2 ML VIAL IM ONE (19:30)
[2017-11-05] MEDS ORDERED: 5 DAY TAPER OF LORAZEPAM -SERENITY PROTOCOL PO PRN (09:00)
[2017-11-05] MEDS ORDERED: FOLIC ACID 1 MG TABLET PO SCH (09:00)
[2017-11-05] MEDS ORDERED: MULTIVITAMINS,THERAPEUTIC TABLET PO SCH (09:00)
[2017-11-05] MEDS ORDERED: TUBERCULIN,PURIF.PROT.DERIV. 5 TU/0.1 ML TEST ID ONE (09:00)
[2017-11-05] MEDS ORDERED: THIAMINE HCL 100 MG TABLET PO SCH (09:00)
[2017-11-06 04:06] LABS: HEPATITIS B SURFACE AG Negative (Negative)
== END 2017-11-04 18:53 | disposition left against medical advice (07) | DRG 894 ==
LOC: SRC 16:34
PROVIDERS: ADMIT Family Medicine Addiction Medicine; ATTEND Family Medicine Addiction Medicine
DX: F10.239 Alcohol dependence with withdrawal, unspecified (principal)
CPT/HCPCS: 36415; 80307; 80346; 83690; 83735; 84443; 84703; 85025; 86592; 86705; 86803; 87340; 87806; G0480

== ENCOUNTER 2020-07-23 12:30 | Emergency (ER) | payer MEDICAID ==
[~2020-07-23] VITALS: Ht 162.6 cm; Wt 53.5 kg
[2020-07-23 13:07] LABS: BASOPHILS # (AUTO) 0.2 K/uL (0.0-8.0); BASOPHILS % (AUTO) 2.5 % (0.0-2.0); EOSINOPHILS % (AUTO) 0.1 % (0.0-7.0); HEMATOCRIT 43.1 % (31.2-41.9); HEMOGLOBIN 14.5 g/dL (10.9-14.3); LYMPHOCYTES # (AUTO) 2.4 K/uL (20.0-40.0); LYMPHOCYTES % (AUTO) 36.1 % (20.5-51.5); MEAN CORPUSCULAR HEMOGLOBIN 32.1 uug (24.7-32.8); MEAN CORPUSCULAR HGB CONC 34 g/dL (32.3-35.6); MEAN CORPUSCULAR VOLUME 95.3 fL (75.5-95.3); MONOCYTES # (AUTO) 0.2 K/uL (2.0-10.0); MONOCYTES % (AUTO) 3.5 % (0.0-11.0); NEUTROPHILS # (AUTO) 3.8 K/uL (1.8-8.9); NEUTROPHILS % (AUTO) 57.8 % (38.5-71.5); PLATELET COUNT (AUTO) 387 K/uL (179-408); RED BLOOD CELL COUNT(AUTO) 4.52 MIL/uL (3.63-4.92); WHITE BLOOD COUNT (AUTO) 6.6 K/uL (3.8-11.8)
[2020-07-23 13:08] LABS: *BILIRUBIN,URIN NEGATIVE (NEGATIVE); *COLOR,URINE YELLOW (YELLOW); *KETONES,URINE NEGATIVE (NEGATIVE); *UROBILINOGEN,URINE 0.2 E.U./dl (NORMAL); LEUKOCYTE ESTERASE ,URINE TRACE (NEGATIVE); NITRITE, URINE NEGATIVE (NEGATIVE); PH,URINE 5.5 (5.0-8.0); UGLUCOSE NEGATIVE (NEGATIVE)
[2020-07-23 13:10] LABS: *BLOOD, URINE TRACE (NEGATIVE)
[2020-07-23 13:11] LABS: CARBON DIOXIDE 26 mmol/L (21-32); CHLORIDE 98 mmol/L (98-107); CREATININE 0.8 mg/dL (0.6-1.3); GLUCOSE 83 mg/dL (74-106); POTASSIUM 4.7 mmol/L (3.5-5.1); UREA NITROGEN, BLOOD 15 mg/dL (7-18)
--- NOTE | 2020-07-23 13:15 | NUR ---
Pt out of ER for CT.
[2020-07-23 13:17] LABS: ALANINE AMINOTRANSFERASE 28 U/L (14-59); ALKALINE PHOSPHATASE 92 U/L (50-136); ASPARTATE AMINOTRANSFERASE 29 U/L (15-37); BILIRUBIN,DIRECT 0.1 mg/dL (0.0-0.2); BILIRUBIN,TOTAL 0.3 mg/dL (0.2-1.0); TOTAL PROTEIN, SERUM 8.3 g/dL (6.4-8.2)
[2020-07-23 13:19] LABS: ACETAMINOPHEN < 2.0 ug/mL (10-30); ETHANOL 339 MG/DL (0-0)
[2020-07-23 13:22] LABS: *AMPHETAMINE, URINE NEGATIVE (NEGATIVE); *CANNABINOID, URINE NEGATIVE (NEGATIVE); *COCCAINE, URINE NEGATIVE (NEGATIVE); *OPIATE, URINE NEGATIVE (NEGATIVE); *PHENCYCLIDINE SCREEN,URINE NEGATIVE (NEGATIVE)
--- NOTE | 2020-07-23 13:32 | NUR ---
Pt back from CT, resting in bed, w/ both eyes closed.
[2020-07-23] MEDS ORDERED: ACETAMINOPHEN ES 500 MG TABLET PO ONE (14:45)
[2020-07-23 14:51] LABS: *CLARITY,URINE SLIGHTLY HAZY (CLEAR)
[2020-07-23 14:52] LABS: BACTERIA,URINE FEW /HPF (NONE SEEN); RBC,URINE 0-3 /HPF (0-3); SQUAMOUS EPITHELIAL CELL,UR FEW /HPF (NONE SEEN)
[2020-07-23] MEDS ORDERED: ACETAMINOPHEN ES 500 MG TABLET ONE (14:53)
--- NOTE | 2020-07-23 15:07 | NUR ---
DR. CRAWLEY CALLED BACK AND TALKED TO DR. ESCUDERO
--- NOTE | 2020-07-23 15:27 | NUR ---
Pt Is restless and repeats wanting to go home. Pt's friends at the bedside helping to clam pt down.
--- NOTE | 2020-07-23 15:48 | NUR ---
Pt is sitting up in bed,speaking to friends, appears less anxious, NAD noted.
[2020-07-23] MEDS ORDERED: ONDANSETRON 4 MG/2 ML VIAL ONE ×2 (16:43→21:02)
[2020-07-23] MEDS ORDERED: HYDROMORPHONE 1 MG/1 ML DISP.SYRIN ONE ×2 (16:43→21:02)
[2020-07-23] MEDS ORDERED: HYDROMORPHONE 1 MG/1 ML DISP.SYRIN IV ONE ×2 (16:45→19:45)
[2020-07-23] MEDS ORDERED: ONDANSETRON 4 MG/2 ML VIAL IV ONE ×2 (16:45→19:45)
--- NOTE | 2020-07-23 17:09 | NUR ---
COVID result faxed to Case dinh 2nd time.
[2020-07-23] MEDS ORDERED: LORAZEPAM 2 MG/1 ML VIAL IV ONE (18:00)
[2020-07-23] MEDS ORDERED: LORAZEPAM 2 MG/1 ML VIAL ONE (18:14)
--- NOTE | 2020-07-23 19:15 | NUR ---
Handsoff report given to Desiree Salinas RN.
--- NOTE | 2020-07-23 19:17 | NUR ---
Assumed care of patient from day shift ARMANDO Espinal.
--- NOTE | 2020-07-23 19:26 | NUR ---
Telephone call to [facility] spoke to nurse Emi and gave report regarding patient. 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
--- NOTE | 2020-07-23 19:40 | NUR ---
Dr. Cruz on bedside.
--- NOTE | 2020-07-23 19:45 | NUR ---
Telephone call to [facility] nurse Emi and informed her that patient had something to eat just now. Visitor brought food for patient and this nurse informed pt not to continue eating as she might have a possible surgery for retinal detachment.
--- NOTE | 2020-07-23 21:30 | NUR ---
Patient Tranfers to outside Facility Physician: Courtney Location: [facility].
== END 2020-07-23 21:30 | disposition short-term general hospital (02) ==
LOC: ER 12:30
DX: H33.21 Serous retinal detachment, right eye (principal); F10.239 Alcohol dependence with withdrawal, unspecified; Y90.8 Blood alcohol level of 240 mg/100 ml or more; S00.83XD Contusion of other part of head, subsequent encounter; W19.XXXD Unspecified fall, subsequent encounter; Z82.49 Family history of ischemic heart disease and other diseases of the circulatory system; Z20.822 Contact with and (suspected) exposure to COVID-19
CPT/HCPCS: 36415; 70450; 70486; 80048; 80076; 80299; 80307; 80320; 81001; 85025; 87086; 87426; 96374; 96376; 99285; J1170 ×2; J2060; J2405 ×2; A4663; A9150; G0480

== ENCOUNTER 2022-02-26 16:18 | Emergency (ER) | payer MEDICAID ==
[~2022-02-26] VITALS: Ht 162.6 cm; Wt 54.4 kg
--- NOTE | 2022-02-26 16:20 | NUR ---
BIB [facility] with c/o alcohol intoxication, pt to room 4B via EMS gurney. Per EMS report the patient was found sleeping in front of a [employer] restaurant.
[2022-02-26 16:56] LABS: HEMATOCRIT 45.7 % (31.2-41.9); MEAN CORPUSCULAR HEMOGLOBIN 30.3 uug (24.7-32.8); MEAN CORPUSCULAR VOLUME 91.7 fL (75.5-95.3); PLATELET COUNT (AUTO) 263 K/uL (179-408)
[2022-02-26 17:15] LABS: ALANINE AMINOTRANSFERASE 21 U/L (14-59); ALKALINE PHOSPHATASE 88 U/L (50-136); ASPARTATE AMINOTRANSFERASE 19 U/L (15-37); BILIRUBIN,TOTAL 0.1 mg/dL (0.2-1.0); CARBON DIOXIDE 26 mmol/L (21-32); CHLORIDE 106 mmol/L (98-107); CREATININE 0.6 mg/dL (0.6-1.3); GLUCOSE 163 mg/dL (74-106); POTASSIUM 3.9 mmol/L (3.5-5.1); TOTAL PROTEIN, SERUM 7.8 g/dL (6.4-8.2); UREA NITROGEN, BLOOD 14 mg/dL (7-18)
[2022-02-26 17:16] LABS: ETHANOL 270 MG/DL (0-0)
[2022-02-26 17:20] LABS: ACETAMINOPHEN < 2.0 ug/mL (10-30)
[2022-02-26] MEDS ORDERED: IV NORMAL SALINE 500 ML BAG IV ONE (17:30)
[2022-02-26 17:38] LABS: THYROID STIMULATING HORMONE 0.889 mIU/mL (0.358-3.740)
--- NOTE | 2022-02-26 19:50 | NUR ---
Patient eloped from facility. Removed IV. ER physician Dr. Daniels notified.
== END 2022-02-26 19:50 | disposition left against medical advice (07) ==
LOC: ER 16:18
DX: R41.82 Altered mental status, unspecified (principal); F10.20 Alcohol dependence, uncomplicated; Y90.8 Blood alcohol level of 240 mg/100 ml or more; Z53.29 Procedure and treatment not carried out because of patient's decision for other reasons; R00.0 Tachycardia, unspecified; Z82.49 Family history of ischemic heart disease and other diseases of the circulatory system
CPT/HCPCS: 80053; 82140; 84443; 85025; 36415; 93005; 71045; 70450; 99285; 96360; 80299; 80320; 80179; J7040; A4663; G0480